=== PATIENT | male | born 1965 | race Caucasian/White ===

== ENCOUNTER 2018-01-07 10:51 | Inpatient (IN) | payer OTHER ==
[2018-01-07 11:51] VITALS: BMI 24.8
--- NOTE | 2018-01-07 17:37 | HP ---
CIWA Score - CIWA Score Nausea/Vomitin (vomitted 3x) Muscle Tremors: 2 Anxiety: 0-No Anxiety, at Ease Agitation: 2 Paroxysmal Sweats: 3 Orientation: 0-Oriented Tacttile Disturbances: 2-Mild Itch/Numbness/Burn (right leg) Auditory Disturbances: 1-Very Mild Visual Disturbances: 2-Mild Sensitivity Headache: 1-Very Mild CIWA-Ar Total Score: 16 Admission [facility] - HPI Chief Complaint: withdrawal symptoms "I feel sick, I have a headache and lights bother me." Allergies/Adverse Reactions: Allergies Allergy/AdvReac Type Severity Reaction Status Date / Time Penicillins Allergy Unknown Verified 01/07/18 16:34 History of Present Illness: 52 yo male presents voluntarily with nicotine, alcohol, xanax, marijuana, cocaine, and heroin dependence is here seeking detox. Currently smokes one pack of cigarettes per day. PMHX: depression, insomnia, anxiety. Reports hx OD x 1 in 2007. Reports attendance to other detox, last detox at [facility] in [place] in 2005. Longest period of sobriety 4 years (1996 -2000). Attends out patient [facility] at [facility], currently methadone 100mg qd, last medicate 01/07/18, was given take home bottle with dose for 01/08/18. Denies suicidal / homicidal ideation or suicide attempts. Patient reports after care plans, plans to attend rehab. Exam Limitations: No Limitations - Ebola screening Have you traveled outside of the country in the last 21 days: No Have you had contact with anyone from an Ebola affected area: No Have you been sick,other than usual withdrawal symptoms: No Do you have a fever: No - Review of Systems Constitutional: Chills, Weight Stable, Unintentional Wgt. Loss EENT: reports: Dental Problems (missing teeth), Other (runny nose) Respiratory: reports: No Symptoms reported Cardiac: reports: No Symptoms Reported GI: reports: Nausea, Poor Appetite, Poor Fluid Intake : reports: No Symptoms Reported Musculoskeletal: reports: Back Pain, Joint Stiffness (right hip) Integumentary: reports: No Symptoms Reported Neuro: reports: Headache, Tingling (right leg) Endocrine: reports: Excessive Sweating, Increased Thirst Hematology: reports: No Symptoms Reported Psychiatric: reports: Orientated x3, Depressed Other Systems: Reviewed and Negative Patient History - Patient Medical History Hx Anemia: No Hx Asthma: No Hx Chronic Obstructive Pulmonary Disease (COPD): No Hx Cancer: No Hx Cardiac Disorders: No Hx Congestive Heart Failure: No Hx Hypertension: No Hx Hypercholesterolemia: No Hx Pacemaker: No HX Cerebrovascular Accident: No Hx Seizures: No Hx Dementia: No Hx Diabetes: No Hx Gastrointestinal Disorders: No Hx Liver Disease: No Hx Genitourinary Disorders: No Hx Sexually Transmitted Disorders: No Hx Renal Disease (ESRD): No Hx Thyroid Disease: No Hx Human Immunodeficiency Virus (HIV): No Hx Hepatitis C: Yes (reports treated and cure ) Hx Depression: Yes Hx Suicide Attempt: No Hx Schizophrenia: No - Patient Surgical History Past Surgical History: Yes Hx Neurologic Surgery: No (lower back) Hx Cataract Extraction: No (Corneal Transplant) Hx Cardiac Surgery: No Hx Lung Surgery: No Hx Breast Surgery: No Hx Breast Biopsy: No Hx Abdominal Surgery: No Hx Appendectomy: No Hx Cholecystectomy: No Hx Genitourinary Surgery: No Hx Section: No Hx Orthopedic Surgery: Yes (lower back) Other Surgical History: L-4-L5 lumbar laminectomy Anesthesia Reaction: No - PPD History Previous Implant?: Yes Documented Results: Negative w/o proof PPD to be Administered?: Yes - Reproductive History Patient is a Female of Child Bearing Age (11 -55 yrs old): No - Smoking Cessation Smoking history: Current every day smoker Have you smoked in the past 12 months: Yes Aproximately how many cigarettes per day: 20 Hx Chewing Tobacco Use: No Initiated information on smoking cessation: Yes 'Breaking Loose' booklet given: 01/07/18 - Substance & Tx. History Hx Alcohol Use: Yes Hx Substance Use: Yes Substance Use Type: Alcohol, Cocaine, Heroin, Marijuana Hx Substance Use Treatment: Yes ([place] 2005) - Substances Abused Cocaine Route: Inhalation Frequency: Daily Amount used: $200-300 Age of first use: 17 Date of Last Use: 01/07/18 Heroin Route: Inhalation Frequency: Daily Amount used: 10 bags Age of first use: 17 Date of Last Use: 01/07/18 Alcohol-beer Route: Oral Frequency: Daily Amount used: 1-8 (16 oz.) Age of first use: 47 Date of Last Use: 01/07/18 Xanax Route: Oral Frequency: Daily Amount used: 4 mg. Age of first use: 44 Date of Last Use: 01/07/18 Admission Physical Exam S - Vital Signs Vital Signs: Vital Signs - 24 hr 01/07/18 11:49 Temperature 96.8 F L Pulse Rate 62 Respiratory 20 Rate Blood Pressure 125/75 - Physical General Appearance: Yes: Disheveled, Mild Distress, Thin, Irritable, Sweating, Anxious HEENTM: Yes: EOMI, Hearing grossly Normal, Normal ENT Inspection, Normocephalic , Normal Voice, JAIRO, Pharynx Normal, Tm's normal, Rhinorrhea, Other (poor dentation) Respiratory: Yes: Chest Non-Tender, Lungs Clear, Normal Breath Sounds, No Respiratory Distress, No Accessory Muscle Use Neck: Yes: No masses,lesions,Nodules, Trachea in good position Breast: Yes: Breast Exam Deferred Cardiology: Yes: Regular Rhythm, Regular Rate Abdominal: Yes: Normal Bowel Sounds, Non Tender, Flat, Soft Genitourinary: Yes: Within Normal Limits Back: Yes: Normal Inspection Musculoskeletal: Yes: full range of Motion, Gait Steady, Other (ambulates with limp) Extremities: Yes: Normal Capillary Refill, Normal Inspection, Normal Range of Motion, Non-Tender Neurological: Yes: car cleaner II-XII NML intact, Fully Oriented, Alert, Motor Strength 5/5, Normal Mood/Affect, Normal Response, Depressed Affect Integumentary: Yes: Normal Color, Warm, Moist Lymphatic: Yes: Within Normal Limits - Addiitonal Findings: Methadone dose pending verification - Diagnostic (1) Chronic back pain Current Visit: Yes Status: Chronic Qualifiers: Back pain location: low back pain Back pain laterality: midline (2) Limp Current Visit: Yes Status: Chronic (3) Nausea and vomiting Current Visit: Yes Status: Acute Qualifiers: Vomiting type: unspecified Vomiting Intractability: unspecified Qualified Code(s): R11.2 - Nausea with vomiting, unspecified (4) Alcohol dependence with withdrawal Current Visit: Yes Status: Acute Qualifiers: Complication of substance-induced condition: uncomplicated Qualified Code(s ): F10.230 - Alcohol dependence with withdrawal, uncomplicated (5) Difficulty sleeping Current Visit: Yes Status: Acute (6) Depressed affect Current Visit: Yes Status: Acute (7) Cocaine dependence Current Visit: Yes Status: Acute Qualifiers: Substance use status: uncomplicated Qualified Code(s): F14.20 - Cocaine dependence, uncomplicated (8) Methadone maintenance therapy patient Current Visit: Yes Status: Chronic (9) Cannabis dependence Current Visit: Yes Status: Acute (10) Nicotine dependence Current Visit: Yes Status: Acute Qualifiers: Nicotine product type: cigarettes Cleared for Admission [facility] - Detox or Rehab [facility] Level of Care: Medically Managed Detox Regimen/Protocol: Librium S Breath Alcohol Content Breath Alcohol Content: 0 Urine Drug Screen - Results Drug Screen Negative: No Urine Drug Screen Results: THC-Marijuana, KIMBERLY-Cocaine, OPI-Opiates, MET- Methamphetamine, BAR-Barbiturates, MTD-Methadone, TCA-Tricyclic Antidepress, OXY -Oxycodone
[2018-01-07] MEDS ORDERED: MAG HYDROX/AL HYDROX/SIMETH 30 ML UNIT-DOSE CUP PO PRN (17:49)
[2018-01-07] MEDS ORDERED: NICOTINE POLACRILEX 4 MG GUM BC PRN (17:49)
[2018-01-07] MEDS ORDERED: chlordiazePOXIDE HCL 25 MG CAPSULE PO ONE (17:49)
[2018-01-07] MEDS ORDERED: MAGNESIUM CITRATE 300 ML BOTTLE PO PRN (17:49)
[2018-01-07] MEDS ORDERED: hydrOXYzine PAMOATE 50 MG CAPSULE (FP) PO PRN (17:49)
[2018-01-07] MEDS ORDERED: chlordiazePOXIDE HCL 25 MG CAPSULE PO PRN (17:49)
[2018-01-07] MEDS ORDERED: IBUPROFEN 400 MG TABLET (FP) PO PRN (17:49)
[2018-01-07] MEDS ORDERED: P-EPHED 60MG/TRIPROLIDI 2.5MG TABLET PO PRN (17:49)
[2018-01-07] MEDS ORDERED: ACETAMINOPHEN 325 MG TABLET (FP) PO PRN (17:49)
[2018-01-07] MEDS ORDERED: MAGNESIUM HYDROX 2400MG/30ML ORAL SUSPENSION 30 ML CUP PO PRN (17:49)
[2018-01-07] MEDS ORDERED: guaiFENesin/D-METHORPHAN HB 10 ML UNIT-DOSE CUPS PO PRN (17:49)
[2018-01-07] MEDS ORDERED: MENTHOL/PHENOL 1 EACH UD MM PRN (17:49)
[2018-01-07] MEDS ORDERED: chlordiazePOXIDE HCL 25 MG CAPSULE ONE (20:08)
[2018-01-07] MEDS: THIAMINE HCL 100 MG TABLET (FP) PO SCH (22:36)
[2018-01-07] MEDS: MELATONIN 5 MG TABLETS PO SCH (22:36)
[2018-01-07] MEDS: chlordiazePOXIDE HCL 25 MG CAPSULE PO SCH (22:36)
[2018-01-08 01:41] LABS: URINE APPEARANCE TURBID; URINE BLOOD NEGATIVE (NEGATIVE); URINE COLOR YELLOW; URINE GLUCOSE (UA) NEGATIVE (NEGATIVE); URINE KETONE TRACE (NEGATIVE); URINE LEUK ESTERASE NEGATIVE (NEGATIVE); URINE NITRITE NEGATIVE (NEGATIVE)
[2018-01-08 02:00] LABS: URINE PROTEIN 1+ (NEGATIVE)
[2018-01-08 02:05] LABS: URINE HYALINE CAST 30 /lpf; URINE MUCUS MANY
[2018-01-08] MEDS ORDERED: METHADONE HCL 10 MG TABLET PO SCH (06:45)
[2018-01-08] MEDS: chlordiazePOXIDE HCL 25 MG CAPSULE PO SCH ×4 (06:48→22:14)
[2018-01-08] MEDS ORDERED: METHADONE HCL 10 MG TABLET ONE (09:25)
[2018-01-08] MEDS ORDERED: METHADONE HCL 40 MG DISPERSABLE TABLET ONE (09:26)
--- NOTE | 2018-01-08 09:59 | EKG ---
Test Reason : Blood Pressure : / mmHG Vent. Rate : 051 BPM Atrial Rate : 051 BPM P-R Int : 126 ms QRS Dur : 086 ms QT Int : 458 ms P-R-T Axes : 031 064 026 degrees QTc Int : 422 ms SINUS BRADYCARDIA OTHERWISE NORMAL ECG NO PREVIOUS ECGS AVAILABLE Confirmed by ELISA CLAUDIO MD ([id number]) on 01/08/2018 9:58:46 AM Referred By: Confirmed By:ELISA CLAUDIO MD
[2018-01-08 10:07] LABS: HEMATOCRIT 41.9 % (35.4-49); HEMOGLOBIN 13.9 GM/dL (11.7-16.9); MCHC 33.3 g/dl (32.0-35.9); MEAN CELL VOLUME 90.1 fl (80-96); MEAN PLT VOLUME 8.6 fl (7.5-11.1); PLATELET COUNT 290 K/MM3 (134-434); RBC 4.65 M/mm3 (4.00-5.60); RDW 13.5 % (11.9-15.9); WHITE BLOOD COUNT 8.6 K/mm3 (4.0-10.0)
[2018-01-08 10:41] LABS: CHLORIDE 105 mmol/L (98-107); POTASSIUM 3.7 mmol/L (3.5-5.1); SODIUM 142 mmol/L (136-145)
[2018-01-08 10:53] LABS: ALBUMIN 3.5 g/dl (3.4-5.0); ALK PHOS 69 U/L (45-117); ANION GAP 9 (8-16); BILIRUBIN,TOTAL 0.3 mg/dL (0.2-1.0); BLOOD UREA NITROGEN 11 mg/dL (7-18); CALCIUM 9.2 mg/dL (8.5-10.1); CO2 28 mmol/L (21-32); CREATININE 0.8 mg/dL (0.7-1.3); GLUCOSE,RANDOM 89 mg/dL (74-106); SGOT/AST 18 U/L (15-37); SGPT/ALT 21 U/L (12-78); TOT PROT 6.6 g/dl (6.4-8.2)
--- NOTE | 2018-01-08 12:52 | PN ---
[facility] CIWA - CIWA Score Nausea/Vomitin-No Nausea/No Vomiting BHS Progress Note (SOAP) Subjective: PT IS VERY SLEEPY. Objective: 01/08/18 12:51 Vital Signs Temperature 98.5 F 01/08/18 09:32 Pulse Rate 55 L 01/08/18 09:32 Respiratory Rate 18 01/08/18 09:32 Blood Pressure 97/61 01/08/18 09:32 O2 Sat by Pulse Oximetry (%) Laboratory Last Values WBC 8.6 K/mm3 (4.0-10.0) 01/08/18 07:00 RBC 4.65 M/mm3 (4.00-5.60) 01/08/18 07:00 Hgb 13.9 GM/dL (11.7-16.9) 01/08/18 07:00 Hct 41.9 % (35.4-49) 01/08/18 07:00 MCV 90.1 fl (80-96) 01/08/18 07:00 MCH 30.0 pg (25.7-33.7) 01/08/18 07:00 MCHC 33.3 g/dl (32.0-35.9) 01/08/18 07:00 RDW 13.5 % (11.9-15.9) 01/08/18 07:00 Plt Count 290 K/MM3 (134-434) 01/08/18 07:00 MPV 8.6 fl (7.5-11.1) 01/08/18 07:00 Sodium 142 mmol/L (136-145) 01/08/18 07:00 Potassium 3.7 mmol/L (3.5-5.1) 01/08/18 07:00 Chloride 105 mmol/L (98-107) 01/08/18 07:00 Carbon Dioxide 28 mmol/L (21-32) 01/08/18 07:00 Anion Gap 9 (8-16) 01/08/18 07:00 BUN 11 mg/dL (7-18) D 01/08/18 07:00 Creatinine 0.8 mg/dL (0.7-1.3) 01/08/18 07:00 Creat Clearance w eGFR > 60 (>60) 01/08/18 07:00 Random Glucose 89 mg/dL (74-106) 01/08/18 07:00 Calcium 9.2 mg/dL (8.5-10.1) 01/08/18 07:00 Total Bilirubin 0.3 mg/dL (0.2-1.0) D 01/08/18 07:00 AST 18 U/L (15-37) 01/08/18 07:00 ALT 21 U/L (12-78) 01/08/18 07:00 Alkaline Phosphatase 69 U/L (45-117) D 01/08/18 07:00 Total Protein 6.6 g/dl (6.4-8.2) 01/08/18 07:00 Albumin 3.5 g/dl (3.4-5.0) 01/08/18 07:00 Urine Color Yellow 01/07/18 22:46 Urine Appearance Turbid 01/07/18 22:46 Urine pH 5.0 (5.0-8.0) 01/07/18 22:46 Ur Specific [place] 1.030 (1.001-1.035) 01/07/18 22:46 Urine Protein 1+ (NEGATIVE) H 01/07/18 22:46 Urine Glucose (UA) Negative (NEGATIVE) 01/07/18 22:46 Urine Ketones Trace (NEGATIVE) H 01/07/18 22:46 Urine Blood Negative (NEGATIVE) 01/07/18 22:46 Urine Nitrite Negative (NEGATIVE) 01/07/18 22:46 Urine Bilirubin 2.0 (NEGATIVE) 01/07/18 22:46 Urine Urobilinogen 2.0 mg/dL (0.2-1.0) 01/07/18 22:46 Ur Leukocyte Esterase Negative (NEGATIVE) 01/07/18 22:46 Urine WBC (Auto) 76 /hpf (3-5) 01/07/18 22:46 Urine RBC (Auto) 8 /hpf (0-3) 01/07/18 22:46 Hyaline Casts 30 /lpf 01/07/18 22:46 Urine Mucus Many 01/07/18 22:46 Assessment: 01/08/18 12:51 WITHDRAWAL SX Plan: CONTINUE DETOX INCREASE PO FLUIDS REPEAT UA
[2018-01-08] MEDS: NICOTINE 21 MG/24 HOURS TOPICAL PATCH TD SCH (13:23)
[2018-01-08] MEDS: PRENATAL VITAMINS W/ FOLIC ACID TABLET (FP) PO SCH (13:23)
[2018-01-08] MEDS: METHADONE 80 MG, METHADONE 20 MG PO SCH (13:23)
--- NOTE | 2018-01-08 14:00 | CONSULT ---
[facility] Psychiatric Consult - Data Date of interview: 01/08/18 Admission source: [facility] Identifying data: First admission to [facility] for this 52 y/o [place] male seeking detox treatment on for heroin,cocaine,marihuana,benzodiazepine and alcohol dependence.Patient is ,a father of four,domiciled, unemployed and supported on SSD benefits. Substance Abuse History: Discussed with the patient.Mr Rodriguez admits to a 30+ history of heroin dependence (snorting up to 10 bags/day) + cocaine dependence (via snorting/spending around 100-300 dollars daily) + consuming 6- 10 beers daily since age 47 + using 2-4 mg of xanax daily since age 44. More details in current [facility] report : Smoking history: Current every day smoker. Have you smoked in the past 12 months: Yes. Aproximately how many cigarettes per day: 20. Hx Chewing Tobacco Use: No. Initiated information on smoking cessation: Yes. 'Breaking Loose' booklet given: 01/07/18. - Substance & Tx. History. Hx Alcohol Use: Yes. Hx Substance Use: Yes. Substance Use Type: Alcohol, Cocaine, Heroin, Marijuana. Hx Substance Use Treatment: Yes ([place] 2005). - Substances Abused. Cocaine. Route: Inhalation. Frequency: Daily. Amount used: $200-300. Age of first use: 17. Date of Last Use: . Heroin. Route: Inhalation. Frequency: Daily. Amount used: 10 bags. Age of first use: 17. Date of Last Use: 01/07/18. Alcohol-beer. Route: Oral. Frequency: Daily. Amount used: 1-8 (16 oz.). Age of first use: 47. Date of Last Use: 01/07/18. Xanax. Route: Oral. Frequency: Daily. Amount used: 4 mg. Age of first use: 44. Date of Last Use: 01/07/18 Medical History: Hepatitis B + C,chronic back pain and a history of orthosurgery (lumbar laminectomy : L4-L5). Psychiatric History: No reported history of psychiatric hospitalizations.Patient denies having a mental illness or a psychiatric diagnosis other than substance dependence.Mr Rodriguez is currently on methadone maintenance (100 mg/day) at the [facility] program in [place].No history of suicide attempts. Physical/Sexual Abuse/Trauma History: Patient denies history of abuse. Additional Comment: THC-Marijuana, KIMBERLY-Cocaine, OPI-Opiates, MET-Methamphetamine , BAR-Barbiturates, MTD-Methadone, TCA-Tricyclic Antidepressant, OXY- Oxycodone.Noted. Mental Status Exam - Mental Status Exam Alert and Oriented to: Time, Place, Person Cognitive Function: Good Patient Appearance: Disheveled (covered with tattoos : neck,arms forearms) Mood: Nervous, Withdrawn Affect: Mood Congruent Patient Behavior: Fatigued, Appropriate, Cooperative Speech Pattern: Clear (more comfortable in [place] ), Appropriate Voice Loudness: Normal Thought Process: Intact, Goal Oriented Thought Disorder: Not Present Hallucinations: Denies Suicidal Ideation: Denies Homicidal Ideation: Denies Insight/Judgement: Poor Sleep: Well Appetite: Good Muscle strength/Tone: Normal Gait/Station: Normal Psychiatric Findings - Problem List (Sims 1, 2,3) (1) Opioid dependence on agonist therapy Current Visit: Yes Status: Acute (2) Alcohol dependence with withdrawal Current Visit: Yes Status: Acute Qualifiers: Complication of substance-induced condition: uncomplicated Qualified Code(s ): F10.230 - Alcohol dependence with withdrawal, uncomplicated (3) Cannabis dependence Current Visit: Yes Status: Acute (4) Cocaine dependence Current Visit: Yes Status: Acute Qualifiers: Substance use status: uncomplicated Qualified Code(s): F14.20 - Cocaine dependence, uncomplicated (5) Nicotine dependence Current Visit: Yes Status: Acute Qualifiers: Nicotine product type: cigarettes - Initial Treatment Plan Initial Treatment Plan: Psychoeducation.Detoxification in progress.Observation.
[2018-01-08 21:15] LABS: URINE APPEARANCE CLOUDY; URINE BILIRUBIN NEGATIVE (NEGATIVE); URINE BLOOD NEGATIVE (NEGATIVE); URINE COLOR YELLOW; URINE GLUCOSE (UA) NEGATIVE (NEGATIVE); URINE KETONE NEGATIVE (NEGATIVE); URINE LEUK ESTERASE TRACE (NEGATIVE); URINE NITRITE NEGATIVE (NEGATIVE); URINE PROTEIN NEGATIVE (NEGATIVE); URINE UROBILINOGEN 4.0 E.U/dl mg/dL (0.2-1.0)
[2018-01-08 21:38] LABS: EPI CELLS RARE /HPF (FEW); URINE BACTERIA MANY /hpf (NONE SEEN); URINE MUCUS RARE
[2018-01-08] MEDS: THIAMINE HCL 100 MG TABLET (FP) PO SCH (22:13)
[2018-01-08] MEDS: MELATONIN 5 MG TABLETS PO SCH (22:14)
[2018-01-09] MEDS ORDERED: METHADONE HCL 40 MG DISPERSABLE TABLET ONE (04:43)
[2018-01-09] MEDS ORDERED: METHADONE HCL 10 MG TABLET ONE (04:43)
[2018-01-09] MEDS: METHADONE 80 MG, METHADONE 20 MG PO SCH (05:11)
[2018-01-09] MEDS: chlordiazePOXIDE HCL 25 MG CAPSULE PO SCH ×3 (05:12→17:37)
[2018-01-09] MEDS: NICOTINE 21 MG/24 HOURS TOPICAL PATCH TD SCH (10:17)
[2018-01-09] MEDS: PRENATAL VITAMINS W/ FOLIC ACID TABLET (FP) PO SCH (10:17)
--- NOTE | 2018-01-09 11:02 | PN ---
[facility] CIWA - CIWA Score Nausea/Vomitin-No Nausea/No Vomiting Muscle Tremors: 4-Moderate,w/Arms Extend Anxiety: 4-Mod. Anxious/Guarded Agitation: 3 Paroxysmal Sweats: 1-Minimal Palms Moist Orientation: 0-Oriented Tacttile Disturbances: 3-Moderate Itch/Numb/Burn (BACK ACHE) Auditory Disturbances: 0-None Visual Disturbances: 0-None Headache: 0-None Present CIWA-Ar Total Score: 15 BHS Progress Note (SOAP) Subjective: ANXIETY,SLIGHT TREMORS, LOWER BACK ACHE. MORE ALERT TODAY. OOB WITH STEADY GAIT. SYRIAC SPEAKING BUT ABLE TO SPEAK SOME PORTUGUESE TO CONVEY HOW HE IS FEELING. Objective: 01/09/18 11:01 Vital Signs Temperature 97.7 F 01/09/18 09:41 Pulse Rate 66 01/09/18 09:41 Respiratory Rate 18 01/09/18 09:41 Blood Pressure 111/71 01/09/18 09:41 O2 Sat by Pulse Oximetry (%) Laboratory Last Values WBC 8.6 K/mm3 (4.0-10.0) 01/08/18 07:00 RBC 4.65 M/mm3 (4.00-5.60) 01/08/18 07:00 Hgb 13.9 GM/dL (11.7-16.9) 01/08/18 07:00 Hct 41.9 % (35.4-49) 01/08/18 07:00 MCV 90.1 fl (80-96) 01/08/18 07:00 MCH 30.0 pg (25.7-33.7) 01/08/18 07:00 MCHC 33.3 g/dl (32.0-35.9) 01/08/18 07:00 RDW 13.5 % (11.9-15.9) 01/08/18 07:00 Plt Count 290 K/MM3 (134-434) 01/08/18 07:00 MPV 8.6 fl (7.5-11.1) 01/08/18 07:00 Sodium 142 mmol/L (136-145) 01/08/18 07:00 Potassium 3.7 mmol/L (3.5-5.1) 01/08/18 07:00 Chloride 105 mmol/L (98-107) 01/08/18 07:00 Carbon Dioxide 28 mmol/L (21-32) 01/08/18 07:00 Anion Gap 9 (8-16) 01/08/18 07:00 BUN 11 mg/dL (7-18) D 01/08/18 07:00 Creatinine 0.8 mg/dL (0.7-1.3) 01/08/18 07:00 Creat Clearance w eGFR > 60 (>60) 01/08/18 07:00 Random Glucose 89 mg/dL (74-106) 01/08/18 07:00 Calcium 9.2 mg/dL (8.5-10.1) 01/08/18 07:00 Total Bilirubin 0.3 mg/dL (0.2-1.0) D 01/08/18 07:00 AST 18 U/L (15-37) 01/08/18 07:00 ALT 21 U/L (12-78) 01/08/18 07:00 Alkaline Phosphatase 69 U/L (45-117) D 01/08/18 07:00 Total Protein 6.6 g/dl (6.4-8.2) 01/08/18 07:00 Albumin 3.5 g/dl (3.4-5.0) 01/08/18 07:00 Urine Color Yellow 01/08/18 20:00 Urine Appearance Cloudy 01/08/18 20:00 Urine pH 8.0 (5.0-8.0) D 01/08/18 20:00 Ur Specific [place] 1.023 (1.001-1.035) 01/08/18 20:00 Urine Protein Negative (NEGATIVE) 01/08/18 20:00 Urine Glucose (UA) Negative (NEGATIVE) 01/08/18 20:00 Urine Ketones Negative (NEGATIVE) 01/08/18 20:00 Urine Blood Negative (NEGATIVE) 01/08/18 20:00 Urine Nitrite Negative (NEGATIVE) 01/08/18 20:00 Urine Bilirubin Negative (NEGATIVE) 01/08/18 20:00 Urine Urobilinogen 4.0 e.u/dl mg/dL (0.2-1.0) 01/08/18 20:00 Ur Leukocyte Esterase Trace (NEGATIVE) 01/08/18 20:00 Urine WBC (Auto) 20 /hpf (3-5) 01/08/18 20:00 Urine RBC (Auto) 6 /hpf (0-3) 01/08/18 20:00 Ur Epithelial Cells Rare /HPF (FEW) 01/08/18 20:00 Urine Bacteria Many /hpf (NONE SEEN) 01/08/18 20:00 Hyaline Casts 30 /lpf 01/07/18 22:46 Urine Mucus Rare 01/08/18 20:00 RPR Titer Nonreactive (NONREACTIVE) 01/08/18 07:00 HIV 1&2 Antibody Screen Negative 01/08/18 08:00 HIV P24 Antigen Negative 01/08/18 08:00 Laboratory Tests 01/07/18 01/08/18 01/08/18 22:46 07:00 07:00 WBC 8.6 RBC 4.65 Hgb 13.9 Hct 41.9 MCV 90.1 MCH 30.0 MCHC 33.3 RDW 13.5 Plt Count 290 MPV 8.6 Sodium 142 Potassium 3.7 Chloride 105 Carbon Dioxide 28 Anion Gap 9 BUN 11 D Creatinine 0.8 Creat Clearance w eGFR > 60 Random Glucose 89 Calcium 9.2 Total Bilirubin 0.3 D AST 18 ALT 21 Alkaline Phosphatase 69 D Total Protein 6.6 Albumin 3.5 Urine Color Yellow Urine Appearance Turbid Urine pH 5.0 Ur Specific [place] 1.030 Urine Protein 1+ H Urine Glucose (UA) Negative Urine Ketones Trace H Urine Blood Negative Urine Nitrite Negative Urine Bilirubin 2.0 Urine Urobilinogen 2.0 Ur Leukocyte Esterase Negative Urine WBC (Auto) 76 Urine RBC (Auto) 8 Ur Epithelial Cells Urine Bacteria Hyaline Casts 30 Urine Mucus Many RPR Titer HIV 1&2 Antibody Screen HIV P24 Antigen 01/08/18 01/08/18 01/08/18 07:00 08:00 20:00 WBC RBC Hgb Hct MCV MCH MCHC RDW Plt Count MPV Sodium Potassium Chloride Carbon Dioxide Anion Gap BUN Creatinine Creat Clearance w eGFR Random Glucose Calcium Total Bilirubin AST ALT Alkaline Phosphatase Total Protein Albumin Urine Color Yellow Urine Appearance Cloudy Urine pH 8.0 D Ur Specific [place] 1.023 Urine Protein Negative Urine Glucose (UA) Negative Urine Ketones Negative Urine Blood Negative Urine Nitrite Negative Urine Bilirubin Negative Urine Urobilinogen 4.0 e.u/dl Ur Leukocyte Esterase Trace Urine WBC (Auto) 20 Urine RBC (Auto) 6 Ur Epithelial Cells Rare Urine Bacteria Many Hyaline Casts Urine Mucus Rare RPR Titer Nonreactive HIV 1&2 Antibody Screen Negative HIV P24 Antigen Negative REPEAT UA MINIMALLY IMPROVED UC TODAY Assessment: 01/09/18 11:01 WITHDRAWAL SX R/O UTI Plan: CONTINUE DETOX INCREASE PO FLUIDS UC TODAY
[2018-01-09] MEDS: chlordiazePOXIDE 5 MG CAPSULE PO SCH (22:22)
[2018-01-09] MEDS: MELATONIN 5 MG TABLETS PO SCH (22:22)
[2018-01-09] MEDS: THIAMINE HCL 100 MG TABLET (FP) PO SCH (22:22)
[2018-01-10] MEDS ORDERED: METHADONE HCL 10 MG TABLET ONE (04:14)
[2018-01-10] MEDS ORDERED: METHADONE HCL 40 MG DISPERSABLE TABLET ONE (04:15)
[2018-01-10] MEDS: METHADONE 80 MG, METHADONE 20 MG PO SCH (05:06)
[2018-01-10] MEDS: chlordiazePOXIDE 5 MG CAPSULE PO SCH ×3 (05:07→17:16)
[2018-01-10] MEDS: PRENATAL VITAMINS W/ FOLIC ACID TABLET (FP) PO SCH (10:27)
[2018-01-10] MEDS: NICOTINE 21 MG/24 HOURS TOPICAL PATCH TD SCH (10:27)
--- NOTE | 2018-01-10 11:35 | PN ---
S Progress Note (SOAP) Subjective: SLIGHT ANXIETY,LOWER BACK PAIN PERSISTS, SWEATS , OOB WITH STEADY GAIT. Objective: 01/10/18 11:33 Vital Signs Temperature 96.8 F L 01/10/18 10:23 Pulse Rate 68 01/10/18 10:23 Respiratory Rate 18 01/10/18 10:23 Blood Pressure 124/70 01/10/18 10:23 O2 Sat by Pulse Oximetry (%) Laboratory Last Values WBC 8.6 K/mm3 (4.0-10.0) 01/08/18 07:00 RBC 4.65 M/mm3 (4.00-5.60) 01/08/18 07:00 Hgb 13.9 GM/dL (11.7-16.9) 01/08/18 07:00 Hct 41.9 % (35.4-49) 01/08/18 07:00 MCV 90.1 fl (80-96) 01/08/18 07:00 MCH 30.0 pg (25.7-33.7) 01/08/18 07:00 MCHC 33.3 g/dl (32.0-35.9) 01/08/18 07:00 RDW 13.5 % (11.9-15.9) 01/08/18 07:00 Plt Count 290 K/MM3 (134-434) 01/08/18 07:00 MPV 8.6 fl (7.5-11.1) 01/08/18 07:00 Sodium 142 mmol/L (136-145) 01/08/18 07:00 Potassium 3.7 mmol/L (3.5-5.1) 01/08/18 07:00 Chloride 105 mmol/L (98-107) 01/08/18 07:00 Carbon Dioxide 28 mmol/L (21-32) 01/08/18 07:00 Anion Gap 9 (8-16) 01/08/18 07:00 BUN 11 mg/dL (7-18) D 01/08/18 07:00 Creatinine 0.8 mg/dL (0.7-1.3) 01/08/18 07:00 Creat Clearance w eGFR > 60 (>60) 01/08/18 07:00 Random Glucose 89 mg/dL (74-106) 01/08/18 07:00 Calcium 9.2 mg/dL (8.5-10.1) 01/08/18 07:00 Total Bilirubin 0.3 mg/dL (0.2-1.0) D 01/08/18 07:00 AST 18 U/L (15-37) 01/08/18 07:00 ALT 21 U/L (12-78) 01/08/18 07:00 Alkaline Phosphatase 69 U/L (45-117) D 01/08/18 07:00 Total Protein 6.6 g/dl (6.4-8.2) 01/08/18 07:00 Albumin 3.5 g/dl (3.4-5.0) 01/08/18 07:00 Urine Color Yellow 01/08/18 20:00 Urine Appearance Cloudy 01/08/18 20:00 Urine pH 8.0 (5.0-8.0) D 01/08/18 20:00 Ur Specific [place] 1.023 (1.001-1.035) 01/08/18 20:00 Urine Protein Negative (NEGATIVE) 01/08/18 20:00 Urine Glucose (UA) Negative (NEGATIVE) 01/08/18 20:00 Urine Ketones Negative (NEGATIVE) 01/08/18 20:00 Urine Blood Negative (NEGATIVE) 01/08/18 20:00 Urine Nitrite Negative (NEGATIVE) 01/08/18 20:00 Urine Bilirubin Negative (NEGATIVE) 01/08/18 20:00 Urine Urobilinogen 4.0 e.u/dl mg/dL (0.2-1.0) 01/08/18 20:00 Ur Leukocyte Esterase Trace (NEGATIVE) 01/08/18 20:00 Urine WBC (Auto) 20 /hpf (3-5) 01/08/18 20:00 Urine RBC (Auto) 6 /hpf (0-3) 01/08/18 20:00 Ur Epithelial Cells Rare /HPF (FEW) 01/08/18 20:00 Urine Bacteria Many /hpf (NONE SEEN) 01/08/18 20:00 Hyaline Casts 30 /lpf 01/07/18 22:46 Urine Mucus Rare 01/08/18 20:00 RPR Titer Nonreactive (NONREACTIVE) 01/08/18 07:00 HIV 1&2 Antibody Screen Negative 01/08/18 08:00 HIV P24 Antigen Negative 01/08/18 08:00 Microbiology 01/09/18 13:45 Urine - Urine Clean Catch Urine Culture - Final NO GROWTH OBTAINED Assessment: 01/10/18 11:34 WITHDRAWAL SX Plan: CONTINUE DETOX
[2018-01-10] MEDS: LOPERAMIDE HCL 2 MG CAPSULE PO PRN (15:21)
[2018-01-10] MEDS: chlordiazePOXIDE HCL 10 MG CAPSULE PO SCH (22:09)
[2018-01-10] MEDS: MELATONIN 5 MG TABLETS PO SCH (22:09)
[2018-01-10] MEDS: THIAMINE HCL 100 MG TABLET (FP) PO SCH (22:09)
[2018-01-10] MEDS ORDERED: ONDANSETRON *ODT* 4 MG TABLET SL PRN (22:35)
[2018-01-11] MEDS ORDERED: METHADONE HCL 10 MG TABLET ONE (03:31)
[2018-01-11] MEDS ORDERED: METHADONE HCL 40 MG DISPERSABLE TABLET ONE (03:32)
[2018-01-11] MEDS: METHADONE 80 MG, METHADONE 20 MG PO SCH (05:28)
[2018-01-11] MEDS: chlordiazePOXIDE HCL 10 MG CAPSULE PO SCH (05:29)
[2018-01-11] MEDS: LOPERAMIDE HCL 2 MG CAPSULE PO PRN (05:41)
[2018-01-11 09:41] VITALS: BP 109/67; PULSE 63; TEMP 98.1
--- NOTE | 2018-01-11 17:58 | PN ---
S Progress Note (SOAP) Subjective: Patient denies any current Detox symptoms and reports that he feels well overall. Objective: PATIENT A & O X 3, OBSERVED AMBULATING ON UNIT. NO ACUTE DISTRESS. 01/11/18 17:56 Vital Signs Temperature 98.1 F 01/11/18 09:10 Pulse Rate 63 01/11/18 09:10 Respiratory Rate 18 01/11/18 09:10 Blood Pressure 109/67 01/11/18 09:10 O2 Sat by Pulse Oximetry (%) Laboratory Tests 01/07/18 01/08/18 01/08/18 22:46 07:00 07:00 WBC 8.6 RBC 4.65 Hgb 13.9 Hct 41.9 MCV 90.1 MCH 30.0 MCHC 33.3 RDW 13.5 Plt Count 290 MPV 8.6 Sodium 142 Potassium 3.7 Chloride 105 Carbon Dioxide 28 Anion Gap 9 BUN 11 D Creatinine 0.8 Creat Clearance w eGFR > 60 Random Glucose 89 Calcium 9.2 Total Bilirubin 0.3 D AST 18 ALT 21 Alkaline Phosphatase 69 D Total Protein 6.6 Albumin 3.5 Urine Color Yellow Urine Appearance Turbid Urine pH 5.0 Ur Specific [place] 1.030 Urine Protein 1+ H Urine Glucose (UA) Negative Urine Ketones Trace H Urine Blood Negative Urine Nitrite Negative Urine Bilirubin 2.0 Urine Urobilinogen 2.0 Ur Leukocyte Esterase Negative Urine WBC (Auto) 76 Urine RBC (Auto) 8 Ur Epithelial Cells Urine Bacteria Hyaline Casts 30 Urine Mucus Many RPR Titer HIV 1&2 Antibody Screen HIV P24 Antigen 01/08/18 01/08/18 01/08/18 07:00 08:00 20:00 WBC RBC Hgb Hct MCV MCH MCHC RDW Plt Count MPV Sodium Potassium Chloride Carbon Dioxide Anion Gap BUN Creatinine Creat Clearance w eGFR Random Glucose Calcium Total Bilirubin AST ALT Alkaline Phosphatase Total Protein Albumin Urine Color Yellow Urine Appearance Cloudy Urine pH 8.0 D Ur Specific [place] 1.023 Urine Protein Negative Urine Glucose (UA) Negative Urine Ketones Negative Urine Blood Negative Urine Nitrite Negative Urine Bilirubin Negative Urine Urobilinogen 4.0 e.u/dl Ur Leukocyte Esterase Trace Urine WBC (Auto) 20 Urine RBC (Auto) 6 Ur Epithelial Cells Rare Urine Bacteria Many Hyaline Casts Urine Mucus Rare RPR Titer Nonreactive HIV 1&2 Antibody Screen Negative HIV P24 Antigen Negative LABS NOTED. Assessment: 01/11/18 17:57 COMPLETION OF DETOX REGIMEN. Plan: PATIENT SCHEDULED FOR DISCHARGE FROM DETOX TODAY. PATIENT WILL RETURN HOME AND TO [facility] OUTPATIENT PROGRAM FOR TIME BEING, THEN WILL APPLY FOR ADMISSION TO REHAB FACILITY AT A LATER DATE.
--- NOTE | 2018-01-11 17:59 | DS ---
[facility] Detox Discharge Summary Admission Date: 01/07/18 Discharge Date: 01/11/18 - History Present History: Alcohol Dependence, Cannabis Dependence, Cocaine Dependence, Opioid Dependence, MMTP Additional Comments: PATIENT RETURNING HOME AND TO [facility] SUBSTANCE USE OUTPATIENT TREATMENT PROGRAM ([facility] CARBAJAL) AND ATTEND TO PERSONAL AFFAIRS, THEN WILL APPLY FOR REHAB ADMISSION AT A LATER DATE. PATIENT WAS DISCHARGED FROM DETOX UNIT IN STABLE MEDICAL CONDITION. Pertinent Past History: Hep C (Treated), Chronic Back Pain, Depression, MMTP, Nausea / Vomiting, Insomnia. - Physical Exam Results Vital Signs: Vital Signs Temperature 98.1 F 01/11/18 09:10 Pulse Rate 63 01/11/18 09:10 Respiratory Rate 18 01/11/18 09:10 Blood Pressure 109/67 01/11/18 09:10 O2 Sat by Pulse Oximetry (%) Pertinent Admission Physical Exam Findings: WITHDRAWAL SYMPTOMS. Laboratory Tests 01/07/18 01/08/18 01/08/18 22:46 07:00 07:00 WBC 8.6 RBC 4.65 Hgb 13.9 Hct 41.9 MCV 90.1 MCH 30.0 MCHC 33.3 RDW 13.5 Plt Count 290 MPV 8.6 Sodium 142 Potassium 3.7 Chloride 105 Carbon Dioxide 28 Anion Gap 9 BUN 11 D Creatinine 0.8 Creat Clearance w eGFR > 60 Random Glucose 89 Calcium 9.2 Total Bilirubin 0.3 D AST 18 ALT 21 Alkaline Phosphatase 69 D Total Protein 6.6 Albumin 3.5 Urine Color Yellow Urine Appearance Turbid Urine pH 5.0 Ur Specific [place] 1.030 Urine Protein 1+ H Urine Glucose (UA) Negative Urine Ketones Trace H Urine Blood Negative Urine Nitrite Negative Urine Bilirubin 2.0 Urine Urobilinogen 2.0 Ur Leukocyte Esterase Negative Urine WBC (Auto) 76 Urine RBC (Auto) 8 Ur Epithelial Cells Urine Bacteria Hyaline Casts 30 Urine Mucus Many RPR Titer HIV 1&2 Antibody Screen HIV P24 Antigen 01/08/18 01/08/18 01/08/18 07:00 08:00 20:00 WBC RBC Hgb Hct MCV MCH MCHC RDW Plt Count MPV Sodium Potassium Chloride Carbon Dioxide Anion Gap BUN Creatinine Creat Clearance w eGFR Random Glucose Calcium Total Bilirubin AST ALT Alkaline Phosphatase Total Protein Albumin Urine Color Yellow Urine Appearance Cloudy Urine pH 8.0 D Ur Specific [place] 1.023 Urine Protein Negative Urine Glucose (UA) Negative Urine Ketones Negative Urine Blood Negative Urine Nitrite Negative Urine Bilirubin Negative Urine Urobilinogen 4.0 e.u/dl Ur Leukocyte Esterase Trace Urine WBC (Auto) 20 Urine RBC (Auto) 6 Ur Epithelial Cells Rare Urine Bacteria Many Hyaline Casts Urine Mucus Rare RPR Titer Nonreactive HIV 1&2 Antibody Screen Negative HIV P24 Antigen Negative LABS NOTED. - Treatment Hospital Course: Detox Protocol Followed, Detoxed Safely, Responded well, Discharged Condition Good Patient has Accepted a Rehab Referral to: PT RETURNING TO [facility] PROGRAM, WILL APPLY FOR REHAB AT LATER DATE. - Medication Discharge Medications: Ambulatory Orders NK [No Known Home Medication] 01/07/18 - Diagnosis (1) Alcohol dependence with withdrawal Status: Acute Qualifiers: Complication of substance-induced condition: uncomplicated Qualified Code(s ): F10.230 - Alcohol dependence with withdrawal, uncomplicated (2) Cannabis dependence Status: Acute (3) Cocaine dependence Status: Acute Qualifiers: Substance use status: uncomplicated Qualified Code(s): F14.20 - Cocaine dependence, uncomplicated (4) Depressed affect Status: Acute (5) Difficulty sleeping Status: Acute (6) Nausea and vomiting Status: Acute Qualifiers: Vomiting type: unspecified Vomiting Intractability: unspecified Qualified Code(s): R11.2 - Nausea with vomiting, unspecified (7) Nicotine dependence Status: Acute Qualifiers: Nicotine product type: cigarettes Substance use status: in withdrawal Qualified Code(s): F17.213 - Nicotine dependence, cigarettes, with withdrawal (8) Opioid dependence on agonist therapy Status: Acute (9) Chronic back pain Status: Chronic Qualifiers: Back pain location: low back pain Back pain laterality: midline Sciatica presence: unspecified whether sciatica present Qualified Code(s): M54.5 - Low back pain; G89.29 - Other chronic pain; G89.29 - Other chronic pain (10) Limp Status: Chronic (11) Methadone maintenance therapy patient Status: Chronic - AMA Did Patient Leave Against Medical Advice: No
== END 2018-01-11 09:25 | disposition home or self-care (01) | DRG 773 ==
LOC: YASAS 10:51 → Y3N 17:55
PROVIDERS: ADMIT Internal Medicine; ATTEND Internal Medicine
PROC: HZ2ZZZZ Detoxification Services for Substance Abuse Treatment (ICD-10-PCS; principal; 2018-01-07)
DX: F11.23 Opioid dependence with withdrawal (principal); F13.230 Sedative, hypnotic or anxiolytic dependence with withdrawal, uncomplicated; F10.230 Alcohol dependence with withdrawal, uncomplicated; F14.20 Cocaine dependence, uncomplicated; F12.20 Cannabis dependence, uncomplicated; F32.9 Major depressive disorder, single episode, unspecified; G47.00 Insomnia, unspecified; M54.5 Low back pain; G89.29 Other chronic pain; R11.2 Nausea with vomiting, unspecified; R26.89 Other abnormalities of gait and mobility; Z86.19 Personal history of other infectious and parasitic diseases; Z94.7 Corneal transplant status
CPT/HCPCS: 36415; 80053; 81003; 81015; 85027; 86593; 87086; 87389; 93005; 93010

== ENCOUNTER 2018-10-16 11:50 | Emergency (ER) | payer OTHER ==
[2018-10-16 12:00] VITALS: BMI 20.9
[2018-10-16] MEDS ORDERED: ONDANSETRON *ODT* 4 MG TABLET SL ONE (13:41)
[2018-10-16] MEDS ORDERED: SODIUM CHLORIDE 1,000 ML IV STA (13:41)
--- NOTE | 2018-10-16 14:00 | PDOC ---
History of Present Illness - General Chief Complaint: Nausea/Vomiting Stated Complaint: Vomiting/Diarrhea Time Seen by Provider: 10/16/18 12:35 History Source: Patient Exam Limitations: No Limitations - History of Present Illness Initial Comments: 10/16/18 13:28 52 yo male pmh substance abuse, heroin, marijuana, abdominal pain with vomiting presents to the ED with 2 days of abdominal pain, 8 episodes NB/NB vomiting and non bloody diarrhea. Pt states he was recently discharged from a detox center without complaints. Pt states he missed his methadone at [address] today due to N/V and abdominal pain and states he will "leave if I don't get methadone." Denies F/C/N/V Past History - Past Medical History Allergies/Adverse Reactions: Allergies Allergy/AdvReac Type Severity Reaction Status Date / Time Penicillins Allergy Unknown Verified 01/07/18 16:34 Home Medications: Ambulatory Orders Ondansetron HCl [Zofran] 4 mg PO BID #8 tablet 10/16/18 Anemia: No Asthma: No Cancer: No Cardiac Disorders: No CVA: No COPD: No CHF: No Dementia: No Diabetes: No GI Disorders: No Disorders: No HTN: No Hypercholesterolemia: No Kidney Stones: No Liver Disease: No Seizures: No Thyroid Disease: No - Surgical History Abdominal Surgery: No Appendectomy: No Cardiac Surgery: No Cholecystectomy: No Lung Surgery: No Neurologic Surgery: No (lower back) Orthopedic Surgery: Yes (lower back) - Reproductive History Testicular Surgery: No - Suicide/Smoking/Psychosocial Hx Smoking History: Current every day smoker Have you smoked in the past 12 months: Yes Number of Cigarettes Smoked Daily: 5 Cigars Per Day: 0 Information on smoking cessation initiated: No 'Breaking Loose' booklet given: 01/07/18 Hx Alcohol Use: No Drug/Substance Use Hx: No Substance Use Type: Alcohol, Cocaine, Heroin, Marijuana Hx Substance Use Treatment: Yes ([place] 2005) Review of Systems - Review of Systems Constitutional: No: Chills, Fever Respiratory: No: Shortness of Breath Cardiac (ROS): No: Chest Pain ABD/GI: Yes: Diarrhea, Nausea, Vomiting. No: Constipated : No: Burning, Dysuria, Frequency, Flank Pain *Physical Exam - Vital Signs Last Vital Signs Temp Pulse Resp BP Pulse Ox 99.3 F 66 18 101/58 L 97 10/16/18 11:59 10/16/18 11:59 10/16/18 11:59 10/16/18 11:59 10/16/18 11:59 Moderate Sedation - Procedure Monitoring Vital Signs: Procedure Monitoring Vital Signs Temperature 99.3 F 10/16/18 11:59 Pulse Rate 66 10/16/18 11:59 Respiratory Rate 18 10/16/18 11:59 Blood Pressure 101/58 L 10/16/18 11:59 O2 Sat by Pulse Oximetry (%) 97 10/16/18 11:59 ED Treatment Course - LABORATORY CBC & Chemistry Diagram: 10/16/18 14:20 10/16/18 14:45 Medical Decision Making - Medical Decision Making 10/16/18 16:19 Pt presents with vomiting, diarrhea and abdominal pain for 2 days. Exam as noted Vitals WNL *DC/Admit/Observation/Transfer Diagnosis at time of Disposition: Abdominal pain with vomiting - Discharge Dispostion Disposition: HOME Condition at time of disposition: Stable Decision to Admit order: No - Referrals - Patient Instructions Printed Discharge Instructions: DI for Vomiting -- Adult Additional Instructions: Please make appointment with your Primary Care Doctor within the next 24 - 48 hours. Take the medication Zofran 2 times a day as needed to relieve vomiting. Return to the Emergency Room for new or concerning symptoms including but not limited to: profuse vomiting not relieved by medications, severe pain in the abdomen, inability to defecate, fatigue, high fevers. Thank you Print Language: LATVIAN - Post Discharge Activity
[2018-10-16 14:56] LABS: BASO % 0.3 % (0-2.0); EOS % 2.6 % (0-4.5); HEMATOCRIT 35.3 % (35.4-49); HEMOGLOBIN 12.2 GM/dL (11.7-16.9); LYMPH % 7.4 % (8-40); MCH 30.9 pg (25.7-33.7); MCHC 34.7 g/dl (32.0-35.9); MEAN CELL VOLUME 89.1 fl (80-96); MEAN PLT VOLUME 7.8 fl (7.5-11.1); MONO % 6.2 % (3.8-10.2); NEUT % 83.5 % (42.8-82.8); PLATELET COUNT 337 K/MM3 (134-434); RBC 3.96 M/mm3 (4.00-5.60); RDW 13.6 % (11.9-15.9); WHITE BLOOD COUNT 9.9 K/mm3 (4.0-10.0)
[2018-10-16] MEDS ORDERED: ONDANSETRON *ODT* 4 MG TABLET ONE (15:19)
[2018-10-16 15:23] LABS: ALBUMIN 2.7 g/dl (3.4-5.0); ALK PHOS 68 U/L (45-117); ANION GAP 6 MMOL/L (8-16); BILIRUBIN,TOTAL 0.4 mg/dL (0.2-1); BLOOD UREA NITROGEN 10 mg/dL (7-18); CALCIUM 8.3 mg/dL (8.5-10.1); CHLORIDE 104 mmol/L (98-107); CO2 29 mmol/L (21-32); CREATININE 0.6 mg/dL (0.55-1.3); GLUCOSE,RANDOM 96 mg/dL (74-106); LIPASE 115 U/L (73-393); POTASSIUM 4.1 mmol/L (3.5-5.1); SGOT/AST 31 U/L (15-37); SGPT/ALT 39 U/L (13-61); SODIUM 139 mmol/L (136-145); TOT PROT 6.3 g/dl (6.4-8.2)
[2018-10-16] MEDS ORDERED: METHADONE HCL 10 MG TABLET PO ONE (15:59)
[2018-10-16] MEDS ORDERED: METHADONE HCL 10 MG TABLET ONE (16:05)
--- NOTE | 2018-10-16 16:12 | PDOC ---
Attending Attestation - Resident Resident Name: VipulrogersRickey - ED Attending Attestation I have performed the following: I have examined & evaluated the patient, The case was reviewed & discussed with the resident, I agree w/resident's findings & plan, Exceptions are as noted - Medical Decision Making 10/16/18 16:11 Nausea vomiting diarrhea diffuse abdominal discomfort laboratory analysis within normal limits status post patient receiving his daily dose of methadone he feels much better asking to go home is currently tolerating fluids. History examination at this time most consistent with viral gastroenteritis patient advised to return to the emergency department for any severe returning abdominal discomfort or for any concerns. <Jamaal Ocampo - Last Filed: 10/16/18 16:11> - HPI HPI: 10/16/18 16:17 The patient is a 52 year old male, with a significant PMH of polysubstance abuse (on methadone treatment), who presents to the emergency department with 2 days of nausea with vomiting (non bloody) and diarrhea (non bloody). The patient denies chest pain, shortness of breath, headache and dizziness. Denies fever, chills, and constipation. Denies dysuria, frequency, urgency and hematuria. Allergies: Penicillins Documentation prepared by Jerome Tavares, acting as medical transcriber for Jamaal Ocampo MD. - Physicial Exam PE: 10/16/18 16:17 Vitals: Triage Vital signs reviewed General Appearance: no acute distress, well nourished well developed, Neck: Supple; No Nuchal rigidity Chest Wall: Nontender Cardiac: Regular rate and rhythm, no murmurs, no rubs, no gallops, Lungs: Clear to auscultation bilateral, good air movement bilaterally, Abdomen: (+) Mild diffuse tenderness to palpation. No rebound or guarding. Soft , nondistended, normal bowel sounds. Rectal: Exam deferred Extremities: Full range of motion to all extremities, no cyanosis, clubbing, or edema Skin: Warm and dry, no rashes or lesions, no petechiae Psych: normal mood, normal affect <Jerome Tavares - Last Filed: 10/16/18 16:24>
[2018-10-16 16:31] VITALS: BP 110/64; PULSE 71; TEMP 98.2
== END 2018-10-16 16:31 | disposition home or self-care (01) ==
LOC: JER 11:50
PROC: 3E0337Z Introduction of Electrolytic and Water Balance Substance into Peripheral Vein, Percutaneous Approach (ICD-10-PCS; principal; 2018-10-16)
DX: R10.9 Unspecified abdominal pain (principal); R11.10 Vomiting, unspecified; F11.20 Opioid dependence, uncomplicated
CPT/HCPCS: 36415; 80053; 83690; 85025; 99282-25; J7030; Q0162

== ENCOUNTER 2018-11-01 09:29 | Inpatient (IN) | payer OTHER ==
[2018-11-01 10:17] VITALS: BMI 21.6
--- NOTE | 2018-11-01 12:44 | HP ---
CIWA Score Nausea/Vomitin-Mild Nausea/No Vomiting Muscle Tremors: 3 Anxiety: 4-Mod. Anxious/Guarded Agitation: 1-Slight > Activity Paroxysmal Sweats: No Perspiration Orientation: 3-Disoriented Date>2 days (thought it was 11/07/17) Tacttile Disturbances: 0-None Auditory Disturbances: 1-Very Mild Visual Disturbances: 1-Very Mild Sensitivity Headache: 1-Very Mild CIWA-Ar Total Score: 15 - Admission Criteria OASAS Guidelines: Admission for Medically Managed Detox: Requires at least one of the followin. CIWA greater than 12 2. Seizures within the past 24 hours 3. Delirium tremens within the past 24 hours 4. Hallucinations within the past 24 hours 5. Acute intervention needed for co occurring medical disorder 6. Acute intervention needed for co occurring psychiatric disorder 7. Severe withdrawal that cannot be handled at a lower level of care (continued vomiting, continued diarrhea, abnormal vital signs) requiring intravenous medication and/or fluids 8. Patient presents the following: CIWA greater than 12 Admission Criteria Met: Admission criteria met Admission ROS [facility] - HPI Chief Complaint: I can't stop by myself, I get very nervous, shaky if I don't drink, I no good Allergies/Adverse Reactions: Allergies Allergy/AdvReac Type Severity Reaction Status Date / Time Penicillins Allergy Unknown Verified 11/01/18 14:12 History of Present Illness: 52 yo gentleman here for detox from alcohol, also using crack. Patient in [facility],was dosed today (150mg). No seizures but has had black out and overdose. Patient also using heroin - states 'I like the taste'. States he was sent by his counselor Bhanu for help. Exam Limitations: Clinical Condition - Ebola screening Have you traveled outside of the country in the last 21 days: No (N) Have you had contact with anyone from an Ebola affected area: No Have you been sick,other than usual withdrawal symptoms: No Do you have a fever: No - Review of Systems Constitutional: Loss of Appetite, Changes in sleep, Weakness EENT: reports: Blurred Vision Respiratory: reports: Cough Cardiac: reports: No Symptoms Reported GI: reports: Nausea, Abdominal cramping : reports: Frequency Musculoskeletal: reports: Back Pain Integumentary: reports: No Symptoms Reported Neuro: reports: Headache, Tremors Endocrine: reports: No Symptoms Reported Hematology: reports: No Symptoms Reported Psychiatric: reports: Judgement Intact, Mood/Affect Appropiate, Anxious Other Systems: Reviewed and Negative Patient History - Patient Medical History Hx Anemia: No Hx Asthma: No Hx Chronic Obstructive Pulmonary Disease (COPD): No Hx Cancer: No Hx Cardiac Disorders: No Hx Congestive Heart Failure: No Hx Hypertension: No Hx Hypercholesterolemia: No Hx Pacemaker: No HX Cerebrovascular Accident: No Hx Seizures: No Hx Dementia: No Hx Diabetes: No Hx Gastrointestinal Disorders: No Hx Liver Disease: No Hx Genitourinary Disorders: No Hx Sexually Transmitted Disorders: No Hx Renal Disease (ESRD): No Hx Thyroid Disease: No Hx Human Immunodeficiency Virus (HIV): No Hx Hepatitis C: Yes (never took medicine) Hx Depression: Yes (no meds, never hospitalized) Hx Suicide Attempt: No (denies) Hx Bipolar Disorder: No Hx Schizophrenia: No Other Medical History: back pain - Patient Surgical History Past Surgical History: Yes Hx Neurologic Surgery: Yes (L4-5 laminectomy) Hx Cataract Extraction: Yes (left eye cataract) Hx Cardiac Surgery: No Hx Lung Surgery: No Hx Breast Surgery: No Hx Breast Biopsy: No Hx Abdominal Surgery: No Hx Appendectomy: No Hx Cholecystectomy: No Hx Genitourinary Surgery: No Hx Section: No Hx Orthopedic Surgery: Yes (lower back) Anesthesia Reaction: No - PPD History Previous Implant?: Yes Documented Results: Negative w/proof Implanted On Prior [facility] Admission?: Yes Date: 01/09/18 PPD to be Administered?: No - Reproductive History Patient is a Female of Child Bearing Age (11 -55 yrs old): No (male) - Smoking Cessation Smoking history: Current every day smoker Have you smoked in the past 12 months: Yes Aproximately how many cigarettes per day: 5 Cigars Per Day: 0 Hx Chewing Tobacco Use: No Initiated information on smoking cessation: Yes 'Breaking Loose' booklet given: 11/01/18 (give on floor) - Substances Abused alcohol Route: Oral Frequency: Daily Amount used: three bottles 40 oz beer Age of first use: 17 Date of Last Use: 10/31/18 heroin Route: Inhalation Frequency: Daily Amount used: 2 bags Age of first use: 17 Date of Last Use: 11/01/18 crack Route: Smoking Frequency: Daily Amount used: 5 bags Age of first use: 24 Date of Last Use: 11/01/18 Family Disease History - Family Disease History Family Disease History: Other: Father (living, NH), Mother (, NH, cancer ), Brother (one AIDS - IVDU), Sister (one cancer, one living with heart disease), Son (two - ages 28 and 33 - healthy), Daughter (two -a ges 25 and 27, healthy) Admission Physical Exam [facility] - Vital Signs Vital Signs: Vital Signs - 24 hr 11/01/18 10:13 Temperature 97.1 F L Pulse Rate 47 L Respiratory 18 Rate Blood Pressure 135/63 - Physical General Appearance: Yes: Nourished, Appropriately Dressed, Moderate Distress, Thin, Tremorous HEENTM: Yes: EOMI, Hearing grossly Normal, Normocephalic, Normal Voice, Pharynx Normal, Other (poor dentition) Respiratory: Yes: Normal Breath Sounds, Rhonchi Neck: Yes: No masses,lesions,Nodules, Supple Breast: Yes: Breast Exam Deferred Cardiology: Yes: Regular Rhythm, Regular Rate Abdominal: Yes: Flat Genitourinary: Yes: Frequency Back: Yes: Normal Inspection, Surgical Scar Musculoskeletal: Yes: full range of Motion, Gait Steady Extremities: Yes: Normal Inspection Neurological: Yes: Fully Oriented, Alert, Motor Strength 5/5, Normal Mood/Affect , Normal Response Integumentary: Yes: Normal Color, Warm Lymphatic: Yes: Within Normal Limits - Diagnostic (1) Alcohol dependence with withdrawal Current Visit: Yes Status: Acute Qualifiers: Complication of substance-induced condition: uncomplicated Qualified Code(s ): F10.230 - Alcohol dependence with withdrawal, uncomplicated (2) Cocaine dependence Current Visit: Yes Status: Acute Qualifiers: Substance use status: uncomplicated Qualified Code(s): F14.20 - Cocaine dependence, uncomplicated (3) Hepatitis C antibody positive in blood Current Visit: Yes Status: Chronic Comment: Hep C Viral load is undetectable. Repreat lab today, RTC in 3 weeks (4) Methadone maintenance therapy patient Current Visit: Yes Status: Chronic (5) Post laminectomy syndrome Current Visit: Yes Status: Chronic Cleared for Admission [facility] - Detox or Rehab [facility] Level of Care: Medically Managed Detox Regimen/Protocol: Librium [facility] Breath Alcohol Content Breath Alcohol Content: 0 Urine Drug Screen - Results Drug Screen Negative: No Urine Drug Screen Results: KIMBERLY-Cocaine, OPI-Opiates, BZO-Benzodiazepines, MTD- Methadone, FEN-Fentanyl
[2018-11-01] MEDS ORDERED: P-EPHED 60MG/TRIPROLIDI 2.5MG TABLET PO PRN (13:03)
[2018-11-01] MEDS ORDERED: MAG HYDROX/AL HYDROX/SIMETH 30 ML UNIT-DOSE CUP PO PRN (13:03)
[2018-11-01] MEDS ORDERED: guaiFENesin/D-METHORPHAN HB 10 ML UNIT-DOSE CUPS PO PRN (13:03)
[2018-11-01] MEDS ORDERED: MENTHOL/PHENOL 1 EACH UD MM PRN (13:03)
[2018-11-01] MEDS ORDERED: LOPERAMIDE HCL 2 MG CAPSULE PO PRN (13:03)
[2018-11-01] MEDS ORDERED: IBUPROFEN 400 MG TABLET (FP) PO PRN (13:03)
[2018-11-01] MEDS ORDERED: MAGNESIUM CITRATE 300 ML BOTTLE PO PRN (13:03)
[2018-11-01] MEDS ORDERED: ACETAMINOPHEN 325 MG TABLET (FP) PO PRN (13:03)
[2018-11-01] MEDS ORDERED: MAGNESIUM HYDROX 2400MG/30ML ORAL SUSPENSION 30 ML CUP PO PRN (13:03)
[2018-11-01] MEDS ORDERED: chlordiazePOXIDE HCL 25 MG CAPSULE PO PRN (13:03)
[2018-11-01] MEDS: NICOTINE 21 MG/24 HOURS TOPICAL PATCH TD SCH (16:32)
[2018-11-01] MEDS: chlordiazePOXIDE HCL 25 MG CAPSULE PO SCH ×2 (16:32→22:23)
[2018-11-01] MEDS ORDERED: MELATONIN 5 MG TABLETS PO PRN (22:00)
[2018-11-01] MEDS: THIAMINE HCL 100 MG TABLET (FP) PO SCH (22:23)
[2018-11-02] MEDS: chlordiazePOXIDE HCL 25 MG CAPSULE PO SCH ×4 (05:37→23:31)
--- NOTE | 2018-11-02 09:56 | PN ---
S CIWA - CIWA Score Nausea/Vomitin-Mild Nausea/No Vomiting Muscle Tremors: 3 Anxiety: 4-Mod. Anxious/Guarded Agitation: 3 Paroxysmal Sweats: 1-Minimal Palms Moist Orientation: 1-Uncertain about Date Tacttile Disturbances: 0-None Auditory Disturbances: 0-None Visual Disturbances: 0-None Headache: 1-Very Mild CIWA-Ar Total Score: 14 [facility] Progress Note (SOAP) Subjective: methadone 140 mg verified tremor restlessness anxiety sweat mild gi distress Objective: 11/02/18 09:56 Vital Signs Temperature 98.7 F 11/02/18 09:46 Pulse Rate 74 11/02/18 09:46 Respiratory Rate 20 11/02/18 09:46 Blood Pressure 101/54 L 11/02/18 09:46 O2 Sat by Pulse Oximetry (%) lab pending Assessment: 11/02/18 09:56 alcohol withdrawal sx 11/02/18 09:57 methadone maintenance Plan: continue alcohol detox regimen
[2018-11-02] MEDS ORDERED: METHADONE 120 MG, METHADONE 20 MG PO ONE (10:00)
[2018-11-02] MEDS ORDERED: METHADONE HCL 10 MG TABLET PO ONE (10:00)
[2018-11-02 10:55] LABS: MCHC 31.7 g/dl (32.0-35.9); MEAN CELL VOLUME 91.3 fl (80-96); MEAN PLT VOLUME 8.4 fl (7.5-11.1); PLATELET COUNT 311 K/MM3 (134-434); RBC 4.49 M/mm3 (4.00-5.60); RDW 13.6 % (11.9-15.9); WHITE BLOOD COUNT 7.6 K/mm3 (4.0-10.0)
[2018-11-02 10:56] LABS: ALBUMIN 2.8 g/dl (3.4-5.0); ALK PHOS 67 U/L (45-117); ANION GAP 4 MMOL/L (8-16); BILIRUBIN,TOTAL 0.2 mg/dL (0.2-1); BLOOD UREA NITROGEN 12 mg/dL (7-18); CALCIUM 8.4 mg/dL (8.5-10.1); CHLORIDE 106 mmol/L (98-107); CO2 29 mmol/L (21-32); CREATININE 0.8 mg/dL (0.55-1.3); GLUCOSE,RANDOM 97 mg/dL (74-106); POTASSIUM 3.9 mmol/L (3.5-5.1); SGOT/AST 12 U/L (15-37); SGPT/ALT 17 U/L (13-61); SODIUM 140 mmol/L (136-145)
[2018-11-02] MEDS ORDERED: METHADONE HCL 10 MG TABLET ONE (10:57)
[2018-11-02] MEDS ORDERED: METHADONE HCL 40 MG DISPERSABLE TABLET ONE (10:57)
[2018-11-02] MEDS: PRENATAL VITAMINS W/ FOLIC ACID TABLET (FP) PO SCH (10:58)
[2018-11-02] MEDS: NICOTINE 21 MG/24 HOURS TOPICAL PATCH TD SCH (10:58)
[2018-11-02] MEDS ORDERED: FLU VACCINE QUAD 60 MCG/0.5 ML (MDV 18-19) IM ONE ×2 (12:00→12:45)
[2018-11-02] MEDS: THIAMINE HCL 100 MG TABLET (FP) PO SCH (23:31)
[2018-11-03] MEDS ORDERED: METHADONE HCL 40 MG DISPERSABLE TABLET ONE (04:31)
[2018-11-03] MEDS ORDERED: METHADONE HCL 10 MG TABLET ONE (04:32)
[2018-11-03] MEDS ORDERED: METHADONE HCL 10 MG TABLET PO SCH (06:00)
[2018-11-03] MEDS: chlordiazePOXIDE HCL 25 MG CAPSULE PO SCH ×2 (06:35→10:20)
[2018-11-03] MEDS: METHADONE 120 MG, METHADONE 20 MG PO SCH (06:35)
[2018-11-03] MEDS: PRENATAL VITAMINS W/ FOLIC ACID TABLET (FP) PO SCH (10:20)
[2018-11-03] MEDS: NICOTINE 21 MG/24 HOURS TOPICAL PATCH TD SCH (10:20)
[2018-11-03] MEDS ORDERED: TRIMETHOBENZAMIDE HCL 200MG/2ML INJ IM PRN (10:37)
[2018-11-03] MEDS: AMMONIUM LACTATE 12% LOTION 225 GM BOTTLE TP SCH ×2 (12:08→22:24)
--- NOTE | 2018-11-03 13:02 | PN ---
S CIWA - CIWA Score Nausea/Vomitin Muscle Tremors: None Anxiety: 3 Agitation: 2 Paroxysmal Sweats: 3 Orientation: 2-Disoriented Date<2 days Tacttile Disturbances: 2-Mild Itch/Numbness/Burn Auditory Disturbances: 0-None Visual Disturbances: 0-None Headache: 0-None Present CIWA-Ar Total Score: 15 [facility] Progress Note (SOAP) Subjective: Diarrhea, Body Aches, Nausea, Sweating. Objective: PATIENT A & O X 2 (UNCERTAIN ABOUT CURRENT DAY / DATE). PATIENT OBSERVED AMBULATING ON UNIT. IN NO ACUTE DISTRESS. 11/03/18 12:57 Vital Signs Temperature 97.3 F L 11/03/18 09:36 Pulse Rate 77 11/03/18 09:36 Respiratory Rate 18 11/03/18 09:36 Blood Pressure 143/73 11/03/18 09:36 O2 Sat by Pulse Oximetry (%) Laboratory Tests 11/02/18 11/02/18 11/02/18 07:50 07:50 07:50 WBC 7.6 RBC 4.49 Hgb 13.0 Hct 41.0 D MCV 91.3 MCH 29.0 MCHC 31.7 L RDW 13.6 Plt Count 311 MPV 8.4 Sodium 140 Potassium 3.9 Chloride 106 Carbon Dioxide 29 Anion Gap 4 L BUN 12 Creatinine 0.8 Creat Clearance w eGFR > 60 Random Glucose 97 Calcium 8.4 L Total Bilirubin 0.2 AST 12 L ALT 17 Alkaline Phosphatase 67 Total Protein 6.0 L Albumin 2.8 L RPR Titer Nonreactive LABS NOTED. 11/03/18 13:02 Assessment: 11/03/18 13:03 WITHDRAWAL SYMPTOMS. Plan: CONTINUE DETOX. INCREASE DAILY PO FLUID INTAKE. PATIENT REPORTS MINIMAL EFFECT FROM IMMODIUM FOR DIARRHEA. WILL CHANGE TO LOMOTIL.
[2018-11-03] MEDS: DIPHENOXYLATE 2.5/ATROPINE.025 1 COMBO TABLET PO PRN (14:31)
[2018-11-03] MEDS: chlordiazePOXIDE 5 MG CAPSULE PO SCH ×2 (17:24→22:24)
[2018-11-03] MEDS: THIAMINE HCL 100 MG TABLET (FP) PO SCH (22:24)
[2018-11-04] MEDS ORDERED: METHADONE HCL 40 MG DISPERSABLE TABLET ONE (04:36)
[2018-11-04] MEDS ORDERED: METHADONE HCL 10 MG TABLET ONE (04:37)
[2018-11-04] MEDS: chlordiazePOXIDE 5 MG CAPSULE PO SCH ×2 (06:07→10:20)
[2018-11-04] MEDS: METHADONE 120 MG, METHADONE 20 MG PO SCH (06:08)
[2018-11-04] MEDS: NICOTINE 21 MG/24 HOURS TOPICAL PATCH TD SCH (10:20)
[2018-11-04] MEDS: PRENATAL VITAMINS W/ FOLIC ACID TABLET (FP) PO SCH (10:20)
[2018-11-04] MEDS: AMMONIUM LACTATE 12% LOTION 225 GM BOTTLE TP SCH ×2 (10:22→22:13)
[2018-11-04] MEDS: DIPHENOXYLATE 2.5/ATROPINE.025 1 COMBO TABLET PO PRN (10:24)
--- NOTE | 2018-11-04 12:04 | PN ---
[facility] Progress Note (SOAP) Subjective: diarrhea stomach ache Objective: 11/04/18 12:03 Vital Signs Temperature 99.1 F 11/04/18 09:20 Pulse Rate 75 11/04/18 09:20 Respiratory Rate 18 11/04/18 09:20 Blood Pressure 122/60 11/04/18 09:20 O2 Sat by Pulse Oximetry (%) [id number] ambulating no acute distress Assessment: 11/04/18 12:04 mild withdrawal sx Plan: continue detox increase fluids [place] prn d/c in am
[2018-11-04] MEDS: chlordiazePOXIDE HCL 10 MG CAPSULE PO SCH ×3 (17:45→22:13)
[2018-11-04] MEDS: THIAMINE HCL 100 MG TABLET (FP) PO SCH (22:13)
[2018-11-05] MEDS ORDERED: METHADONE HCL 40 MG DISPERSABLE TABLET ONE (04:37)
[2018-11-05] MEDS ORDERED: METHADONE HCL 10 MG TABLET ONE (04:37)
[2018-11-05] MEDS: chlordiazePOXIDE HCL 10 MG CAPSULE PO SCH (06:22)
[2018-11-05] MEDS: METHADONE 120 MG, METHADONE 20 MG PO SCH (06:22)
[2018-11-05 07:17] VITALS: BP 97/55; PULSE 54; TEMP 97.7
--- NOTE | 2018-11-05 08:56 | DS ---
[facility] Detox Discharge Summary Admission Date: 11/01/18 Discharge Date: 11/05/18 - History Present History: Alcohol Dependence, Cocaine Dependence, MMTP - Physical Exam Results Vital Signs: Vital Signs Temperature 97.7 F 11/05/18 07:16 Pulse Rate 54 L 11/05/18 07:16 Respiratory Rate 18 11/05/18 07:16 Blood Pressure 97/55 L 11/05/18 07:16 O2 Sat by Pulse Oximetry (%) - Treatment Hospital Course: Detox Protocol Followed, Detoxed Safely, Responded well, Discharged Condition Good, Rehab Referral Accepted - Medication Discharge Medications: Ambulatory Orders Methadone [Dolophine -] 150 mg PO DAILY 11/01/18 - Diagnosis (1) Alcohol dependence with withdrawal Current Visit: Yes Status: Chronic Qualifiers: Complication of substance-induced condition: uncomplicated Qualified Code(s ): F10.230 - Alcohol dependence with withdrawal, uncomplicated (2) Cocaine dependence Current Visit: Yes Status: Chronic Qualifiers: Substance use status: uncomplicated Qualified Code(s): F14.20 - Cocaine dependence, uncomplicated (3) Hepatitis C antibody positive in blood Current Visit: Yes Status: Chronic (4) Methadone maintenance therapy patient Current Visit: Yes Status: Chronic (5) Post laminectomy syndrome Current Visit: Yes Status: Chronic (6) Cannabis dependence Current Visit: No Status: Acute (7) Depressed affect Current Visit: No Status: Acute (8) Nicotine dependence Current Visit: Yes Status: Acute Qualifiers: Nicotine product type: cigarettes Substance use status: uncomplicated Qualified Code(s): F17.210 - Nicotine dependence, cigarettes, uncomplicated (9) Chronic back pain Current Visit: No Status: Chronic Qualifiers: Back pain location: low back pain Back pain laterality: midline Sciatica presence: unspecified whether sciatica present Qualified Code(s): M54.5 - Low back pain; G89.29 - Other chronic pain; G89.29 - Other chronic pain (10) Hepatitis A antibody positive Current Visit: No Status: Chronic (11) Hepatitis B antibody positive Current Visit: No Status: Chronic (12) History of hepatitis C Current Visit: No Status: Chronic (13) Limp Current Visit: No Status: Chronic (14) Post corneal transplant Current Visit: No Status: Chronic - AMA Did Patient Leave Against Medical Advice: No (referred to [facility] outpatient)
== END 2018-11-05 08:55 | disposition home or self-care (01) | DRG 773 ==
LOC: YASAS 09:29 → Y6N 14:47
PROC: HZ2ZZZZ Detoxification Services for Substance Abuse Treatment (ICD-10-PCS; principal; 2018-11-01)
DX: F10.230 Alcohol dependence with withdrawal, uncomplicated (principal); F14.20 Cocaine dependence, uncomplicated; F12.20 Cannabis dependence, uncomplicated; F11.20 Opioid dependence, uncomplicated; F17.210 Nicotine dependence, cigarettes, uncomplicated; R45.89 Other symptoms and signs involving emotional state; M54.5 Low back pain; G89.29 Other chronic pain; M96.1 Postlaminectomy syndrome, not elsewhere classified; R76.8 Other specified abnormal immunological findings in serum; R26.89 Other abnormalities of gait and mobility; Z86.19 Personal history of other infectious and parasitic diseases; Z94.7 Corneal transplant status; Z88.0 Allergy status to penicillin
CPT/HCPCS: 36415; 80053; 85027; 86593

== ENCOUNTER 2019-06-08 09:16 | Emergency (ER) | payer OTHER ==
[2019-06-08 09:24] VITALS: BP 130/78; PULSE 82; TEMP 97.9; BMI 24.2
[2019-06-08] MEDS ORDERED: LIDOCAINE 5% TOPICAL PATCH TP ONE (11:00)
[2019-06-08] MEDS ORDERED: ACETAMINOPHEN 500 MG TABLET (FP) PO ONE (11:00)
[2019-06-08] MEDS ORDERED: DEXAMETHASONE LIQUID 0.5 MG/5 ML 240 ML BULK BOTTLE PO ONE (11:00)
[2019-06-08] MEDS ORDERED: DEXAMETHASONE SOD PHOSPHATE 10 MG/1 ML VIAL ONE (11:04)
[2019-06-08] MEDS ORDERED: ACETAMINOPHEN 500 MG TABLET (FP) ONE (11:04)
[2019-06-08] MEDS ORDERED: LIDOCAINE 5% TOPICAL PATCH ONE (11:04)
--- NOTE | 2019-06-08 11:08 | PDOC ---
History of Present Illness - General Chief Complaint: Chronic pain Stated Complaint: RT THIGH PAIN Time Seen by Provider: 06/08/19 09:44 History Source: Patient Exam Limitations: No Limitations Past History - Travel Traveled outside of the country in the last 30 days: No Close contact w/someone who was outside of country & ill: No - Past Medical History Allergies/Adverse Reactions: Allergies Allergy/AdvReac Type Severity Reaction Status Date / Time Penicillins Allergy Unknown Verified 06/08/19 09:24 Home Medications: Ambulatory Orders Methadone [Dolophine -] 150 mg PO DAILY 11/01/18 Acetaminophen [Tylenol -] 1,000 mg PO Q6H #40 tablet 06/08/19 Methylprednisolone [Medrol Dose Zane] 4 mg PO ASDIR #21 tablet 06/08/19 Anemia: No Asthma: No Cancer: No Cardiac Disorders: No CVA: No COPD: No CHF: No Dementia: No Diabetes: No GI Disorders: No Disorders: No HTN: No Hypercholesterolemia: No Kidney Stones: No Liver Disease: No Seizures: No Thyroid Disease: No Other medical history: methadone daily - Surgical History Abdominal Surgery: No Appendectomy: No Cardiac Surgery: No Cholecystectomy: No Lung Surgery: No Neurologic Surgery: Yes (L4-5 laminectomy) Orthopedic Surgery: Yes (lower back) - Reproductive History Testicular Surgery: No - Suicide/Smoking/Psychosocial Hx Smoking History: Current every day smoker Have you smoked in the past 12 months: Yes Number of Cigarettes Smoked Daily: 8 Cigars Per Day: 0 Information on smoking cessation initiated: No 'Breaking Loose' booklet given: 11/01/18 Hx Alcohol Use: Yes Drug/Substance Use Hx: Yes Substance Use Type: Alcohol, Cocaine, Heroin, Marijuana Hx Substance Use Treatment: Yes ([facility] d/c on 01/12/18) Review of Systems - Review of Systems Able to Perform ROS?: Yes Comments:: 06/08/19 10:58 CONSTITUTIONAL: Absent: fever, chills, diaphoresis, generalized weakness, malaise, loss of appetite GASTROINTESTINAL: Absent: abdominal pain, abdominal distension, nausea, vomiting, diarrhea, constipation, melena, hematochezia GENITOURINARY: Absent: dysuria, frequency, urgency, hesitancy, hematuria, flank pain, genital pain MUSCULOSKELETAL: Present: low back pain, R leg pain Absent: arthralgia, joint swelling SKIN: Absent: rash, itching, pallor NEUROLOGIC: Absent: headache, focal weakness or paresthesias, dizziness, unsteady gait, seizure, mental status changes, bladder or bowel incontinence PSYCHIATRIC: Absent: anxiety, depression, suicidal or homicidal ideation, hallucinations. Is the patient limited [place] proficient: No *Physical Exam - Vital Signs Last Vital Signs Temp Pulse Resp BP Pulse Ox 97.9 F 82 16 130/78 85 L 06/08/19 09:20 06/08/19 09:20 06/08/19 09:20 06/08/19 09:20 06/08/19 09:20 - Physical Exam Comments: 06/08/19 10:58 GENERAL: Well developed, well nourished. Awake and alert. No acute distress. HEENT: Normocephalic, atraumatic. PERRLA, EOMI. No conjunctival pallor. Sclera are non- icteric. Moist mucous membranes. Oropharynx is clear. NECK: Supple. Full ROM. No JVD. Carotid pulses 2+ and symmetric, without bruits. No thyromegaly. No lymphadenopathy. MUSCULOSKELETAL TTP of the R paraspinous muscles, L3-L5, with palpable knot consistent with muscle spasm. (-) straight leg raise. No midline tenderness. Normal range of motion at all joints. No bony deformities or tenderness. No CVA tenderness. EXTREMITIES: No cyanosis. No clubbing. No edema. No calf tenderness. SKIN: Warm and dry. Normal capillary refill. No rashes. No jaundice. NEUROLOGICAL: Alert, awake, appropriate. Cranial nerves 2-12 intact. No deficits to light touch and temperature in face, upper extremities and lower extremities. No motor deficits in the in face, upper extremities and lower extremities. Normoreflexic in the upper and lower extremities. Normal speech. Toes are down- going bilaterally. Gait is normal without ataxia. PSYCHIATRIC: Cooperative. Good eye contact. Appropriate mood and affect. ED Treatment Course - RADIOLOGY Radiology Studies Ordered: Category Date Time Status FOOT-RIGHT [RAD] Stat Radiology 06/08/19 09:44 Completed KNEE 3 POS-RIGHT [RAD] Stat Radiology 06/08/19 09:44 Completed SPINE-LUMBAR SACRAL [RAD] Stat Radiology 06/08/19 09:44 Completed Medical Decision Making - Medical Decision Making 06/09/19 08:59 The patient is a 53-year-old male on methadone, hx of previous laminectomy presents to the ER today for low back pain status post mechanical trip and fall approximately 3 weeks ago. He states he has been taking Motrin with some relief of his symptoms. However he states that today the pain got worse and that it hurts to walk. He states that the pain is now going down the back of his right leg. Denies fevers, chills, new numbness and tingling to the affected extremity, saddle anesthesia, bladder or bowel incontinence. A/P: Low back pain -Pt with TTP of the R paraspinous muscles, L3-L5, with palpable knot consistent with muscle spasm. (-) straight leg raise. No midline tenderness. -No fever. No saddle anesthesia or bladder/bowel incontinence. No CVA tenderness. -Pt is neurologically intact on exam with no focal findings. -X-ray shows no acute fractures or subluxations. -Toradol given with relief of symptoms -DC home. Pt to f/u with his PCP. Ortho referral given. -I discussed the physical exam findings, ancillary test results and final diagnoses with the patient. I answered all of the patient's questions. The patient was satisfied with the care received and felt comfortable with the discharge plan and treatment plan. The Patient agrees to follow up with the primary care physician/specialist within 24-72 hours. Return precautions were given. *DC/Admit/Observation/Transfer Diagnosis at time of Disposition: Chronic back pain Qualifiers: Back pain location: low back pain Back pain laterality: right Sciatica presence : without sciatica Qualified Code(s): M54.5 - Low back pain - Discharge Dispostion Disposition: HOME Condition at time of disposition: Stable Decision to Admit order: No - Prescriptions Prescriptions: Acetaminophen [Tylenol -] 1,000 mg PO Q6H #40 tablet Methylprednisolone [Medrol Dose Zane] 4 mg PO ASDIR #21 tablet - Referrals Referrals: Lila Blake MD [Primary Care Provider] - - Patient Instructions Printed Discharge Instructions: DI for Low Back Pain Additional Instructions: You have low back pain due to a muscle spasm. Please take Tylenol 1000 mg 3 times a day not to exceed 4000 mg a day. You were also prescribed Flexeril. Please take this medication every 8 hours for the first day. Then take the medication before you go to bed. Do not drive after taking this medication as it may make you sleepy. Take the medrol dose pack as directed starting tomorrow. You may use warm compresses on your back to help with her symptoms. Please follow-up with your primary care doctor. If your symptoms do not resolve in 3-5 days, follow-up with orthopedics. A referral has been provided for you. Return to the emergency department if you have worsening back pain, bladder or bowel incontinence, numbness and tingling in her legs, changes in the way you walk, or any new or worsening symptoms. Tiene dolor de espalda baja debido a un espasmo muscular. Por favor, tome Tylenol 1000 mg 3 veces al da para no exceder 4000 mg al da. Tambin te recetaron Flexeril. Por favor, tome wali medicamento cada 8 horas para el primer da. Luego tome el medicamento antes de irse a la cama. No conduzca despus de teri wali medicamento, ya que puede causarle sueo. [place] el envase de dosis de medrol milo se indica a partir de maana. Puedes usar compresas calientes en la espalda para ayudar con andrzej sntomas. Por favor, maggi un seguimiento con spicer mdico de atencin primaria. Si andrzej sntomas no se resuelven en 3-5 marks, maggi un seguimiento con ortopedia. Se le velez proporcionado christy referencia. Regrese al servicio de urgencias si tiene un empeoramiento del dolor de espalda , incontinencia de vejiga o intestino, entumecimiento y hormigueo en las piernas , cambios en la forma en que camina o cualquier sntoma nuevo o que empeore. Print Language: EMIRATI - Post Discharge Activity
[2019-06-08] MEDS ORDERED: LIDOCAINE PATCH REMOVAL MC SCH (22:00)
== END 2019-06-08 11:16 | disposition home or self-care (01) ==
LOC: JERFT 09:16
DX: M54.5 Low back pain (principal); G89.29 Other chronic pain; F17.210 Nicotine dependence, cigarettes, uncomplicated; F11.20 Opioid dependence, uncomplicated; Z88.0 Allergy status to penicillin
CPT/HCPCS: 72100-TC-FY; 73562-TC-RT-FY; 73630-TC-RT-FY; 99282-25